=== PATIENT | male | born 1980 | race Caucasian/White ===

== ENCOUNTER → 2020-02-28 09:12 | Outpatient (CLI) | payer OTHER, SELFPAY ==
--- NOTE | 2020-02-28 | DI.MRI.S_ITS ---
PROCEDURE: MR SHOULDER LT WO CON INDICATIONS: Pain in left shoulder TECHNIQUE: Noncontrast oblique coronal T2 fast spin echo with fat saturation, oblique sagittal T1 spin echo and T2 fast spin echo with fat saturation, axial T1 spin echo and T2 fast spin echo with fat saturation through the shoulder. COMPARISON: None. FINDINGS: Image quality: Excellent. Rotator cuff: There is tendinosis and moderate grade bursal surface partial-thickness tear involving distal supraspinatus at its insertion on humeral head extending to musculotendinous junction. Distal infraspinatus and subscapularis tendons are grossly intact. Sagittal images demonstrate no significant rotator cuff muscle atrophy. Bones and bursae: No bone marrow contusions or fractures. Mild to moderate acromioclavicular joint osteoarthritic changes are seen.. No pathologic subacromial-subdeltoid or subcoracoid bursal fluid is present. Capsule and soft tissues: In the absence of intra-articular contrast, there is suggestion of superior anterior labral tear at 12 to 1:00 position. The glenohumeral ligaments appear intact. Tendinosis and low-grade partial-thickness tear involving proximal intra-articular portion of long head biceps is seen. The rotator interval appears normal, without fibrosis. The coracohumeral ligament is normal in thickness. IMPRESSION: 1. Tendinosis and moderate grade bursal surface partial-thickness tear involving distal supraspinatus extending to musculotendinous junction. No full-thickness rotator cuff tendon rupture. 2. Mild to moderate acromioclavicular joint osteoarthritis. 3. Suggestion of superior anterior labral tear at 12 to 1:00 position. Dictated by: Luis Gordillo M.D. on 02/28/2020 at 10:27 Approved by: Luis Gordillo M.D. on 02/28/2020 at 10:42
== END ==
DX: M25.512 Pain in left shoulder (principal); M75.112 Incomplete rotator cuff tear or rupture of left shoulder, not specified as traumatic; M19.012 Primary osteoarthritis, left shoulder
CPT/HCPCS: 73221

== ENCOUNTER → 2022-03-14 12:53 | Outpatient (CLI) | payer OTHER, SELFPAY ==
--- NOTE | 2022-03-21 08:06 | PM.PFT.1 ---
Pulmonary Function Test Referral & Results Date Patient Seen: 03/14/22 Requesting provider: Grant Arenas Results: The spirometry demonstrates an FVC of 6.20 L which is 110% of predicted. The FEV1 was measured at 4.70 L which is 105% of predicted. The FEV1/FVC ratio was 76 which is 94% of predicted. Following the administration of bronchodilator there was 25% improvement in FEF 25-75% Lung volumes show an SVC of 6.04 L which is 112% of predicted. The diffusing capacity was measured at 37.56 which is 107% of predicted. The maximum voluntary ventilation was normal Interpretation: This study demonstrates normal pulmonary function
== END ==
PROVIDERS: Referring Provider Internal Medicine Critical Care Medicine; Visit Provider Internal Medicine Critical Care Medicine
DX: J45.20 Mild intermittent asthma, uncomplicated (principal)
CPT/HCPCS: 71046; 94060; 94726; 94729

== ENCOUNTER → 2022-03-14 13:59 | Outpatient (CLI) | payer OTHER, SELFPAY ==
--- NOTE | 2022-03-14 14:30 | DI.RAD.S_ITS ---
PROCEDURE: XR CHEST 2V INDICATIONS: Mild intermittent asthma, uncomplicated TECHNIQUE: 2 views of the chest were acquired. COMPARISON: None. FINDINGS: Surgical changes and devices: None. Lungs and pleura: Lungs are clear. No pleural effusions or pneumothorax. Mediastinum: Mediastinal contours are normal. Heart size is normal. Bones and chest wall: No suspicious bony abnormalities. Soft tissues appear unremarkable. IMPRESSION: No acute cardiopulmonary pathology. Dictated by: Luis Gordillo M.D. on 03/14/2022 at 16:42 Approved by: Luis Gordillo M.D. on 03/14/2022 at 16:42
== END ==
PROVIDERS: Referring Provider Internal Medicine Critical Care Medicine; Visit Provider Internal Medicine Critical Care Medicine
DX: J45.20 Mild intermittent asthma, uncomplicated (principal)
CPT/HCPCS: 71046